=== PATIENT | female | born 1990 | race Caucasian/White ===

== ENCOUNTER 2024-01-27 16:08 | Outpatient (RCR) | payer BC, SELFPAY | END 2024-01-27 23:59 | disposition home or self-care (01) | LOC: RPT 16:08 | PROVIDERS: ATTENDING PHYSICIAN Obstetrics & Gynecology | DX: M54.59 Other low back pain (principal); M62.89 Other specified disorders of muscle; Z73.6 Limitation of activities due to disability; R27.8 Other lack of coordination; M62.81 Muscle weakness (generalized); R10.2 Pelvic and perineal pain | CPT/HCPCS: 97110; 97162; 97530 ==